=== PATIENT | female | born 1985 | race Caucasian/White ===

== ENCOUNTER 2020-04-04 12:16 | Emergency (ER) | payer BC ==
[~2020-04-04] VITALS: Ht 170.2 cm; Wt 63.5 kg
[2020-04-04 12:26] VITALS: BP_SYST 132
[2020-04-04 12:52] VITALS: BP_SYST 132
== END 2020-04-04 12:52 | disposition home or self-care (01) ==
LOC: SED 12:16
DX: F41.9 Anxiety disorder, unspecified (principal); R53.83 Other fatigue
CPT/HCPCS: 93005; 99283